=== PATIENT | female | born 1960 | race Caucasian/White ===

== ENCOUNTER → 2016-09-21 | Outpatient (CLI) | payer MEDICARE, MEDICAID ==
[~2016-09-21] MED LIST: AUGMENTIN XR 101 TER PO; BACLOFEN 10MG T10 MG PO; EFFEXOR XR 75MG75 MG PO; EFFEXOR XR150 MG PO; ETODOLAC400 MG PO; FLEXERIL10 MG PO; GABAPENTIN 600600 MG PO; GABAPENTIN100 M1 PO; HYDROCODONE BIT1 T39 PO; HYDROCODONE-APA1 TA2 PO; LISINOPRIL 10MG10 MG PO; LISINOPRIL5 MG PO; NYSTATIN 1100000 UNI MT; PERCOCET 5/3251 EACH PO; ROBAXIN 500 MG500 MG PO; SIMVASTATIN20 MG PO; TIZANIDINE2 MG PO; TRAZADONE HYDR100 MG PO; VALIUM 5MG TABLE5 MG PO; VALIUM5 MG PO; WELLBUTRIN 75MG75 MG PO; XANAX 1MG TABLET1 MG PO
--- NOTE | 2016-09-21 09:25 | RADIOLOGY REPORT PS360 ---
HAND-RT 3 VIEWS HISTORY: Right hand pain BILAT HAND PAIN ORDERING PHYSICIAN: Dick Mcclendon MD PATIENT AGE: 55 years COMPARISON: None FINDINGS: No fracture or dislocation. No lytic or blastic change. There is normal mineralization. No erosive changes evident. There are minimal osteoarthritic changes of the first metacarpal carpal joint and the DIP of digits 2 and 3. IMPRESSION: Minimal osteoarthritic change first metacarpal carpal joint and the DIPs of digits 2 and 3 otherwise negative
--- NOTE | 2016-09-21 09:26 | RADIOLOGY REPORT PS360 ---
HAND-LT-3 VIEWS HISTORY: Left hand pain BILAT HAND PAIN ORDERING PHYSICIAN: Dick Mcclendon MD PATIENT AGE: 55 years COMPARISON: None FINDINGS: No fracture or dislocation. No lytic or blastic change. There is normal mineralization. Mild osteoarthritic changes are present first metacarpal carpal joint and the DIP of digits 2 and 3. No erosive change evident. IMPRESSION: Mild osteoarthritic change first metacarpal carpal joint and the DIP of digits 2 and 3 otherwise negative
== END ==
LOC: RAD 08:11
DX: M79.642 Pain in left hand (principal); M79.641 Pain in right hand

== ENCOUNTER → 2016-11-14 | Outpatient (CLI) | payer MEDICARE, MEDICAID ==
[2016-11-14 14:49] LABS: HEMOGLOBIN 13.6 g/dL (12.2-16.2); LYMPH # 2.9 K/mm3 (0.7-4.5); LYMPH % 29.9 % (10-50.0)
[2016-11-14 15:29] LABS: BUN 19 mg/dL (7-18)
[2016-11-14 15:46] LABS: GFR (ESTIMATED) 74 ML/MIN (59-)
== END ==
LOC: LAB 14:09
PROVIDERS: Nurse Practitioner Family
DX: I10 Essential (primary) hypertension (principal); F32.9 Major depressive disorder, single episode, unspecified; K30 Functional dyspepsia; Z79.899 Other long term (current) drug therapy

== ENCOUNTER 2016-11-21 13:20 | Emergency (ER) | payer MEDICARE, MEDICAID ==
[~2016-11-21] VITALS: Ht 152.4 cm; Wt 61.2 kg
--- NOTE | 2016-11-21 13:37 | Emergency Room Report ---
History of Present Illness Time Seen by [id number] Presenting Problem in Triage Pt arrived:Walked Presenting Problem:PT HAS HX OF CERVICAL DYSTONIA. 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 N Clinical Suspician of Infection? N Mental Status: 1 - Regular (Normal Baseline) Sepsis Risk:Low Sepsis Risk Have you (or family members/close friends) recently traveled outside the [place]? N If Yes, where/when: Have you had exposure to infectious disease within the past month? N TB? Other? Specify: Source patient, RN notes reviewed, family, RN/MD Exam Limitations no limitations Comment This is a pleasant 55-year-old lady, with chronic cervical pain, history of cervical dystonia, presenting with a flareup of her chronic neck pain to the emergency room. Patient is in pain management, under the care of Te Love CRNA. Patient denies any recent trauma, any neurological deficits. ALLERGIES Coded Allergies: butorphanol (From STADOL) (Severe, 09/27/16) Home Medications Active Scripts HYDROCODONE/ACETAMINOPHEN (Hydrocodon-Acetaminoph 7.5-325) 1 TAB PO TID PRN pain #90 TAB Prov: 12/15/15 Cyclobenzaprine Hcl (Flexeril) 10 MG PO TID #90 TAB Ref 2 Prov: 09/13/16 Reported Medications Lisinopril 5 MG PO DAILY #14 Diazepam (Valium 5MG) 5 MG PO BID Venlafaxine Hydrochloride (Effexor XR 75MG) 37.5 MG PO DAILY History Medical History General CAD? No Angina: No CA: No Hypertension? No Hyperlipidemia? Yes CHF? No DVT? No PE? No COPD? No Asthma? No Anemia? No GERD? No Gastric ulcers? No GI Bleed? No Hernia? No Thyroid Problems? No Hypothyroidism? No CVA? No Seizures? No Diabetes? No Renal Insuffiency? No End Stage Renal Disease? No UTI? No Stones? No BPH? No GB Disease: No Nephritic Syndrome? No Asplenia? No Hepatitis? No Sickle Cell Disease? No Arthritis? Yes Migraines? No Cataracts? No Glaucoma? No MRSA? No HIV? No TB? No Anxiety? Yes Depression? Yes Cancer? No More? Yes Additional hx: CERVICAL DYSTONIA--MENINGITIS Immunization Hx DT/Tetanus 1-4 Years Ago Surgical Hx Previous Surgery?Y CARMELLA. 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 LMP N/A Social History Smoking Hx Smoker: Current Every Day Smoker Tobacco: Yes Type Cigarettes Packs/day < 1 Pack Alcohol Alcohol: No Review of Systems All Other Systems Reviewed and Negative Musculoskeletal see HPI, neck pain Physical Exam Vital Signs Vital Signs Date Time Temp Pulse Resp B/P Pulse O2 O2 Flow FiO2 Ox Delivery Rate 11/21 1418 84 16 142/74 98 11/21 1352 16 11/21 1322 98.5 91 16 148/94 98 General Appearance normal appearance, WD/WN, moderate distress Neck normal inspection, supple, full range of motion, tender lateral (right side ) Respiratory Status Yes: trachea midline, chest symmetrical, non tender chest. No: respiratory distress. Lung Sounds bilateral: normal breath sounds, lungs clear. 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 No Comment Upon evaluation patient appears medically stable, clinically improving. 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 Today she appears to have a flareup of her chronic condition, with an overlapping torticollis. She is neurologically intact, has no deficits in the upper extremities. Results/Orders Current Medication Orders Sig/Gera Start time Last Medication Dose Route Stop Time Status Admin Hydromorphone HCl 0 .STK-MED ONE 11/21 1346 DCr .ROUTE Promethazine HCl 0 .STK-MED ONE 11/21 134 DC .ROUTE Hydromorphone HCl 1 MG ONCE ONE 11/21 1345 DCr 11/21 IM 11/21 1346 1352 Methylprednisolone 80 MG ONCE ONE 11/21 1344 CAN Acetate IM 05/15 1346 Promethazine HCl 25 MG ONCE ONE 11/21 1345 DC 11/21 IM 11/21 1346 1351 Sodium Chloride 25 ML ONCE ONE 11/21 1345 DC IV 11/21 1359 Departure Departure Time of Disposition 1410 Disposition DC Home or Self Care(routine) Clinical Impression Primary Impression: Chronic neck pain Secondary Impressions: Acute torticollis Condition STABLE Referrals TE [facility] CRNA: Tomorrow-Call Office If not better Patient Instructions DI for Chronic Neck Pain, DI for Chronic Pain -- Adult, DI for Neck Pain Additional Instructions Please follow-up with Te Love tomorrow, if not better. Discharge Counseling Counseled pt/family regarding diagnosis, medications/RX, home care, follow up needs Comment Please follow-up with Te Love tomorrow, if not better. ED Critical Care Critical Care No at [phone]
--- NOTE | 2016-11-21 13:37 | Emergency Room Report ---
History of Present Illness Time Seen by [id number] Presenting Problem in Triage Pt arrived:Walked Presenting Problem:PT HAS HX OF CERVICAL DYSTONIA. 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 N Clinical Suspician of Infection? N Mental Status: 1 - Regular (Normal Baseline) Sepsis Risk:Low Sepsis Risk Have you (or family members/close friends) recently traveled outside the [place]? N If Yes, where/when: Have you had exposure to infectious disease within the past month? N TB? Other? Specify: Source patient, RN notes reviewed, family, RN/MD Exam Limitations no limitations Comment This is a pleasant 55-year-old lady, with chronic cervical pain, history of cervical dystonia, presenting with a flareup of her chronic neck pain to the emergency room. Patient is in pain management, under the care of Te Love CRNA. Patient denies any recent trauma, any neurological deficits. ALLERGIES Coded Allergies: butorphanol (From STADOL) (Severe, 09/27/16) Home Medications Active Scripts HYDROCODONE/ACETAMINOPHEN (Hydrocodon-Acetaminoph 7.5-325) 1 TAB PO TID PRN pain #90 TAB Prov: 12/15/15 Cyclobenzaprine Hcl (Flexeril) 10 MG PO TID #90 TAB Ref 2 Prov: 09/13/16 Reported Medications Lisinopril 5 MG PO DAILY #14 Diazepam (Valium 5MG) 5 MG PO BID Venlafaxine Hydrochloride (Effexor XR 75MG) 37.5 MG PO DAILY History Medical History General CAD? No Angina: No [place]: No Hypertension? No Hyperlipidemia? Yes CHF? No DVT? No PE? No COPD? No Asthma? No Anemia? No GERD? No Gastric ulcers? No GI Bleed? No Hernia? No Thyroid Problems? No Hypothyroidism? No CVA? No Seizures? No Diabetes? No Renal Insuffiency? No End Stage Renal Disease? No UTI? No Stones? No BPH? No GB Disease: No Nephritic Syndrome? No Asplenia? No Hepatitis? No Sickle Cell Disease? No Arthritis? Yes Migraines? No Cataracts? No Glaucoma? No MRSA? No HIV? No TB? No Anxiety? Yes Depression? Yes Cancer? No More? Yes Additional hx: CERVICAL DYSTONIA--MENINGITIS Immunization Hx DT/Tetanus 1-4 Years Ago Surgical Hx Previous Surgery?Y CARMELLA. 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 Social History Smoking Hx Smoker: Current Every Day Smoker Tobacco: Yes Type Cigarettes Packs/day < 1 Pack Alcohol Alcohol: No Review of Systems All Other Systems Reviewed and Negative Musculoskeletal see HPI, neck pain Physical Exam Vital Signs Vital Signs Date Time Temp Pulse Resp B/P Pulse O2 O2 Flow FiO2 Ox Delivery Rate 11/21 1418 84 16 142/74 98 11/21 1352 16 11/21 1322 98.5 91 16 148/94 98 General Appearance normal appearance, WD/WN, moderate distress Neck normal inspection, supple, full range of motion, tender lateral (right side ) Respiratory Status Yes: trachea midline, chest symmetrical, non tender chest. No: respiratory distress. Lung Sounds bilateral: normal breath sounds, lungs clear. Cardiovascular normal exam, regular rate/rhythm, no peripheral edema, no gallop, no JVD, no murmur, no rub, normal peripheral pulses Gastrointestinal normal bowel sounds, normal exam, non tender, soft, no organomegaly Extremities non-tender, normal range of motion, normal inspection Neurologic alert, churn tender II-XII nml as tested, normal exam, oriented x 3 Mental status normal mood/affect Skin intact, normal color, warm/dry Medical Decision Making LABS/Meds/Orders Pt receiving controlled substance in ED? No Comment Upon evaluation patient appears medically stable, clinically improving. 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 Today she appears to have a flareup of her chronic condition, with an overlapping torticollis. She is neurologically intact, has no deficits in the upper extremities. Results/Orders Current Medication Orders Sig/Gera Start time Last Medication Dose Route Stop Time Status Admin Hydromorphone HCl 0 .STK-MED ONE 11/21 1346 DCr .ROUTE Promethazine HCl 0 .STK-MED ONE 11/21 134 DC .ROUTE Hydromorphone HCl 1 MG ONCE ONE 11/21 1345 DCr 11/21 IM 11/21 1346 1352 Methylprednisolone 80 MG ONCE ONE 11/21 1344 CAN Acetate IM 05/15 1346 Promethazine HCl 25 MG ONCE ONE 11/21 1345 DC 11/21 IM 11/21 1346 1351 Sodium Chloride 25 ML ONCE ONE 11/21 1345 DC IV 11/21 1359 Departure Departure Time of Disposition 1410 Disposition DC Home or Self Care(routine) Clinical Impression Primary Impression: Chronic neck pain Secondary Impressions: Acute torticollis Condition STABLE Referrals [facility] CRNA: Tomorrow-Call Office If not better Patient Instructions DI for Chronic Neck Pain, DI for Chronic Pain -- Adult, DI for Neck Pain Additional Instructions Please follow-up with Te Love tomorrow, if not better. Discharge Counseling Counseled pt/family regarding diagnosis, medications/RX, home care, follow up needs Comment Please follow-up with Te Love tomorrow, if not better. ED Critical Care Critical Care No at [phone]
--- OUTSIDE RECORDS SUMMARY | 2016-11-21 13:54 | External Medical Summary Rpt ---
Author Author , Organization [employer] Address Unknown Phone Unavailable Care Team Providers Care Acetone Button Paster Name Role Phone Quoc HOYT, Unavailable Unavailable Quoc HOYT MD, PSC, Unavailable Unavailable CANDICE BAR MD, PSC [facility] Unavailable Unavailable [facility], [facility], Unavailable Unavailable [facility] AFTAB SWIFT, Unavailable Unavailable AFTAB SWIFT [id number], Unavailable Unavailable [id number] GABRIEL VARGAS, Unavailable Unavailable GABRIEL VARGAS DUFF Unavailable Unavailable [facility] Un[facility] Un[facility], [facility] CAITLIN REINA, Unavailable Unavailable CAITLIN REINA [facility] Unavailable Unavailable PHARMACY, [facility] MARCIAL HUDDLESTON, Unavailable Unavailable MARCIAL HUDDLESTON NATHAN L, Unavailable Unavailable JALEN PLASCENCIA KEVIN, Unavailable Unavailable [facility] Unavailable Unavailable LAB, [facility] ROSS, SAGE, ROSS, Unavailable Unavailable SAGE [id number], Unavailable Unavailable [id number] MERLYN ROGERS, Unavailable Unavailable MERLYN ROGERS DON R, Unavailable Unavailable PRANAV GONZALEZ [facility], Unavailable Unavailable [facility] LUDA RAMOS, Unavailable Unavailable LUDA RAMOS JEFFREY, Unavailable Unavailable FADY LOMELI BRADLEY B, Unavailable Unavailable CARLOS LEI Purpose Continuity of Care Document - 08-16-2007 through 2016 Problems Code Diagnosis DOS Provider Status E785 HYPERLIPIDE 09-22-2016 [facility] UNSPECIFIED INC I10 ESSENTIAL 09-22-2016 [facility] HYPERTENSIO INC N [id number] PAIN IN 09-21-2016 [facility] INC [id number] PAIN IN 09-21-2016 [facility] INC G4733 OBSTRUCTIVE 09-08-2016 [facility] APNEA ADULT INC PEDIATRIC R0602 SHORTNESS 07-29-2016 [facility] INC R42 DIZZINESS 07-29-2016 [facility] GIDDINESS INC Z720 TOBACCO USE 07-29-2016 [facility] INC Z8249 FAMILY HX 07-21-2016 [facility] HRT DZ OTH INC DZ CIRC SYSTEM [id number] CHRONIC 07-19-2016 [facility] HEADACHE [facility] NOT INTRACTABLE [id number] STRAIN 07-19-2016 [facility]ASC [facility] T[facility] PSC NECK LEVL INIT ENC M5010 CERVICAL 04-05-2016 CANDICE BAR DISC D/O MD, PSC W/RADICULOP ATHY UNS CERV RGN M791 MYALGIA 04-05-2016 CANDICE BAR MD, PSC M542 CERVICALGIA 01-15-2016 [facility] INC R140 ABDOMINAL 11-26-2015 [facility] GASEOUS INC G249 DYSTONIA 08-07-2015 [facility] M069 RHEUMATOID 08-07-2015 [facility] UNSPECIFIED R51 HEADACHE 08-07-2015 [facility] Z721 08-07-2015 [facility] INC K69149 PAIN IN 07-16-2015 [facility] INC 7231 CERVICALGIA 01-30-2015 [facility] INC V7231 ROUTINE 11-24-2008 [facility] 91285 PAIN IN 11-13-2008 [facility] ANKLE AND HOSPITAL FOOT 7235 TORTICOLLIS 11-13-2008 [facility] UNSPECIFIED HOSPITAL V571 OTHER 11-13-2008 [place] PHYSICAL [facility] THERAPY HOSPITAL 7245 UNSPECIFIED 10-31-2008 [facility] [place] BACKACHE RADIOLOGY 7295 PAIN IN 10-31-2008 [facility] [place] SOFT RADIOLOGY TISSUES OF LIMB 71220 UNSPECIFIED 10-31-2008 [facility] 71419 UNSPECIFIED 10-31-2008 [facility] [place] SITE OF RADIOLOGY ANKLE SPRAIN AND STRAIN V4382 BREAST 10-31-2008 [place] REPLACED BY [facility] OTHER HOSPITAL MEANS V7612 OTHER 10-31-2008 [facility] [place] SCREENING RADIOLOGY MAMMOGRAM V8281 SPECIAL 10-31-2008 [facility] [place] SCREENING RADIOLOGY FOR OSTEOPOROSI S 92248 SPASMODIC 10-02-2008 [place] [facility] TORTICOLLIS SERV [facility] 1129 CANDIDIASIS 08-11-2008 GONZALEZ, OF DON R UNSPECIFIED SITE 4610 ACUTE 08-11-2008 GONZALEZ, MAXILLARY DON R SINUSITIS 4619 ACUTE 08-08-2008 AYLA SINUSITIS, [facility] UNSPECIFIED [place] 7840 HEADACHE 08-08-2008 [facility] 7862 COUGH 08-08-2008 [facility] 4660 ACUTE 07-30-2008 CARLOS, BRONCHITIS DON R 0340 STREPTOCOCC 07-23-2008 CARLOS AL SORE DON R THROAT 4659 ACUTE URIS 07-14-2008 CARLOS OF DON R UNSPECIFIED SITE 5959 UNSPECIFIED 04-11-2008 CARLOS, [place]STIT[place] [address] UNSPECIFIED 04-11-2008 CARLOS, VAGINITIS DON R AND VULVOVAGINI TIS 7292 UNSPECIFIED 03-08-2008 CARLOS NEURALGIA DON R NEURITIS AND RADICULITIS 7234 BRACHIAL 03-04-2008 [facility] NEURITIS OR [facility] RADICULITIS NOS 7291 UNSPECIFIED 03-04-2008 [facility] MYALGIA [facility] AND MYOSITIS 7391 NONALLOPATH 03-04-2008 [facility] IC LESION [facility] OF CERVICAL REGION NEC 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 [facility] [place] 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 3384 CHRONIC 11-07-2007 [facility] PA[facility] SYNDROME MEDICIINE PSC 7210 CERVICAL 11-07-2007 [facility] SPONDYLOSIS PAIN WITHOUT MEDICIINE MYELOPATHY PSC 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-2007 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 51996 STIFFNESS 10-29-2007 [facility] OF JOINT [facility] NEC OTHER SPECIFIED SITE 7239 UNSPEC 10-29-2007 [facility] MUSCULOSKEL [facility]N D/O&SYMPTOM S REFERABLE NECK 68522 UNSPECIFIED 08-16-2007 [facility] ACUTE MEDICAL NONSUPPURAT CLINIC CHRISTAL OTITIS MEDIA 4871 INFLUENZA 08-16-2007 [facility] WITH OTHER MEDICAL RESPIRATORY CLINIC MANIFESTATI ONS G24.3 SPASMODIC TORTICOLLIS Medications Na ND Rx Da Fi Fi Am Da Di Ph RX Ph St me C No te ll ll ou ys ag ar # ys at rm s nt no ma ic us Or Da si cy ia de te s n re d 00 11 06 05 42 28 RI 34 YO Ac 04 -1 -0 .5 TE 46 UK ti 60 7- 4- 00 21 IL ve 87 20 20 AI IS 29 08 09 D 3 PH BR AR AD M LE #3 Y 91 B 4 NC 00 05 06 00 30 30 RI 36 YO Ac EM 04 -1 -0 .0 TE 42 UK ti AR 61 8- 4- 00 23 IL ve IN 10 20 20 AI IS 08 09 09 D 0. 1 PH BR 3 AR AD MG M LE #3 Y TA 91 B BL 4 ET CL 00 05 05 00 20 5 RI 36 RA Ac ON 09 -0 -2 .0 TE 23 AB ti AZ 30 6- 1- 00 38 ve EP 83 20 20 AI RE AM 20 09 09 D GI 1 PH NA 0. AR 5 M MG #3 91 TA 4 BL ET 64 10 05 03 5. 1 RI 34 YO Ac 01 -1 -2 79 TE 12 UK ti 10 5- 1- 9 38 IL ve 00 20 20 AI IS 10 08 09 D 8 PH BR AR AD M LE #3 Y 91 B 4 00 05 05 00 9. 30 RI 36 WE Ac 09 -1 -[address] ti 30 3- 1- 0 87 ve 22 20 20 AI RI 49 09 09 D CH 0 PH AR AR D M M #3 91 4 NC 00 11 05 05 30 30 RI 34 YO Ac EM 04 -1 -0 .0 TE 46 UK ti AR 61 7- 7- 00 24 IL ve IN 10 20 20 AI IS 08 08 09 D 0. 1 PH BR 3 AR AD MG M LE #3 Y TA 91 B BL 4 ET 00 11 05 04 42 28 RI 34 YO Ac 04 -1 -0 .5 TE 46 UK ti 60 7- 7- 00 21 IL ve 87 20 20 AI IS 29 08 09 D 3 PH BR AR AD M LE #3 Y 91 B 4 00 11 04 03 42 28 RI 34 YO Ac 04 -1 -0 .5 TE 46 UK ti 60 7- 9- 00 21 IL ve 87 20 20 AI IS 29 08 09 D 3 PH BR AR AD M LE #3 Y 91 B 4 NC 00 11 04 04 30 30 RI 34 YO Ac EM 04 -1 -0 .0 TE 46 UK ti AR 61 7- 9- 00 24 IL ve IN 10 20 20 AI IS 08 08 09 D 0. 1 PH BR 3 AR AD MG M LE #3 Y TA 91 B BL 4 ET KAMI 00 03 04 00 3. 1 KE 12 NE Ac TO 02 -2 -0 00 NT 42 LS ti X 31 6- 9- 0 UC 75 ON ve 10 14 20 20 KY 0 0 50 09 09 KE UN 1 CL IT IN N S IC AL PH AR MA CY BA 00 03 03 00 90 30 RI 35 RA Ac CL 17 -1 -2 .0 TE 65 AB ti OF 24 3- 6- 00 47 ve EN 09 20 20 AI RE 66 09 09 D GI 10 0 PH NA AR MG M #3 TA 91 BL 4 ET 00 11 03 02 42 28 RI 34 YO Ac 04 -1 -1 .5 TE 46 UK ti 60 7- 2- 00 21 IL ve 87 20 20 AI IS 29 08 09 D 3 PH BR AR AD M LE #3 Y 91 B 4 NC 00 11 03 03 30 30 RI 34 YO Ac EM 04 -1 -1 .0 TE 46 UK ti AR 61 7- 2- 00 24 IL ve IN 10 20 20 AI IS 08 08 09 D 0. 1 PH BR 3 AR AD MG M LE #3 Y TA 91 B BL 4 ET 00 02 02 00 [address] Ac 60 -1 -2 .0 TE 32 EP ti 35 1- 6- 00 02 HE ve 46 20 20 AI NS 82 09 09 D 8 PH DO AR N M R #3 91 4 NC 00 02 02 00 [address] Ac OM 78 -0 -1 .0 TE 21 EP ti ET 11 2- 2- 00 17 HE ve YANG 83 20 20 AI NS ZI 00 09 09 D NE 1 PH DO AR N 25 M R #3 MG 91 4 TA BL ET NY 51 01 02 00 10 10 RI [address] 67 -3 -1 0. TE 19 MO ti AT 24 0- 2- 00 58 N ve IN 11 20 20 0 AI AN [address] 10 9 PH EW 0, AR R 00 M 0 #3 UN 91 IT 4 /M L CAMACHO SP 00 01 02 00 20 5 RI 35 YANG Ac 02 -3 -1 .0 TE 19 MO ti 96 0- 2- 00 57 N ve 09 20 20 AI AN [address] 0 PH EW AR R M #3 91 4 AZ 59 01 01 00 6. [address] Ac IT 76 -1 -3 00 TE 04 EP ti HR 23 4- 0- 0 04 HE ve OM 06 20 20 AI NS YC 00 09 09 D IN 1 PH DO AR N 25 M R 0 #3 MG 91 4 TA BL ET FL 00 01 01 00 8. [address] Ac UC 17 -1 -3 00 TE 04 EP ti ON 25 4- 0- 0 03 HE ve AZ 41 20 20 AI NS OL 14 09 09 D E 6 PH DO 10 AR N 0 M R MG #3 91 TA 4 BL ET FL 00 01 01 00 [address] Ac UT 05 -2 -3 .0 TE 11 EP ti IC 43 1- 0- 00 46 HE ve 27 20 20 AI NS ON 09 09 09 D E 9 PH DO NC AR N OP M R #3 50 91 4 MC G SP RA Y ME 00 01 01 00 [address] Ac TH 60 -2 -3 .0 TE 11 EP ti YL 34 1- 0- 00 47 HE ve NC 59 20 20 AI NS ED 31 09 09 D NI 5 PH DO SO AR N LO M R NE #3 4 91 4 MG DO SE PK NC 00 11 01 02 30 30 RI 34 YO Ac EM 04 -1 -3 .0 TE 46 UK ti AR 61 7- 0- 00 24 IL ve IN 10 20 20 AI IS 08 08 09 D 0. 1 PH BR 3 AR AD MG M LE #3 Y TA 91 B BL 4 ET 60 01 01 00 [address] Ac 25 -2 -3 0. TE 11 EP ti 80 1- 0- 00 45 HE ve 23 20 20 0 AI NS 91 09 09 D 6 PH DO AR N M R #3 91 4 FL 00 01 01 00 2. [address] Ac UC 17 -0 -1 00 TE 99 EP ti ON 25 9- 5- 0 81 HE ve AZ 41 20 20 AI NS OL 21 09 09 D E 1 PH DO 15 AR N 0 M R MG #3 91 TA 4 BL ET 00 01 01 00 [address] Ac 60 -0 -1 .0 TE 91 EP ti 35 2- 5- 00 86 HE ve 46 20 20 AI NS 82 09 09 D 8 PH DO AR N M R #3 91 4 AV 00 01 01 00 7. [address] Ac EL 08 -0 -1 00 TE 93 EP ti OX 51 5- 5- 0 56 HE ve 73 20 20 AI NS 40 30 09 09 D 0 1 PH DO MG AR N M R TA #3 BL 91 ET 4 KAMI 00 12 01 00 3. 1 KE 12 NE Ac TO 02 -1 -1 00 NT 19 LS ti X 31 2- 5- 0 UC 31 ON ve 10 14 20 20 KY 5 0 50 08 09 KE UN 1 CL IT IN N S IC AL PH AR MA CY 64 10 01 02 5. 1 RI 34 YO Ac 01 -1 -0 79 TE 12 UK ti 10 5- 1- 9 38 IL ve 00 20 20 AI IS 10 08 09 D 8 PH BR AR AD M LE #3 Y 91 B 4 NC 00 11 01 01 30 30 RI 34 YO Ac EM 04 -1 -0 .0 TE 46 UK ti AR 61 7- 1- 00 24 IL ve IN 10 20 20 AI IS 08 08 09 D 0. 1 PH BR 3 AR AD MG M LE #3 Y TA 91 B BL 4 ET 00 11 01 01 42 28 RI 34 YO Ac 04 -1 -0 .5 TE 46 UK ti 60 7- 1- 00 21 IL ve 87 20 20 AI IS 29 08 09 D 3 PH BR AR AD M LE #3 Y 91 B 4 NC 00 11 12 00 30 30 RI 34 YO Ac EM 04 -1 -0 .0 TE 46 UK ti AR 61 7- 4- 00 24 IL ve IN 10 20 20 AI IS 08 08 08 D 0. 1 PH BR 3 AR AD MG M LE #3 Y TA 91 B BL 4 ET 00 11 12 00 42 28 RI 34 YO Ac 04 -1 -0 .5 TE 46 UK ti 60 7- 4- 00 21 IL ve 87 20 20 AI IS 29 08 08 D 3 PH BR AR AD M LE #3 Y 91 B 4 CL 00 05 12 02 20 10 RI 33 NE Ac ON 09 -2 -0 .0 TE 82 LS ti AZ 30 3- 4- 00 06 ON ve EP 83 20 20 AI AM 20 08 08 D KE 1 PH 0. AR N 5 M MG #3 91 TA 4 BL ET NC 00 10 11 01 30 30 RI 34 YO Ac EM 04 -1 -2 .0 TE 12 UK ti AR 61 5- 0- 00 37 IL ve IN 10 20 20 AI IS 18 08 08 D 0. 1 PH BR 45 AR AD M LE MG #3 Y 91 B TA 4 BL ET 64 10 11 01 5. 1 RI 34 YO Ac 01 -1 -0 79 TE 12 UK ti 10 5- 7- 9 38 IL ve 00 20 20 AI IS 10 08 08 D 8 PH BR AR AD M LE #3 Y 91 B 4 ME 50 10 10 00 14 7 RI 34 YO Ac TR 11 -1 -2 .0 TE 12 UK ti ON 10 5- 3- 00 40 IL ve ID 33 20 20 AI IS AZ 40 08 08 D OL 1 PH BR E AR AD 50 M LE 0 #3 Y MG 91 B 4 TA BL ET NC 00 10 10 00 30 30 RI 34 YO Ac EM 04 -1 -2 .0 TE 12 UK ti AR 61 5- 3- 00 37 IL ve IN 10 20 20 AI IS 18 08 08 D 0. 1 PH BR 45 AR AD M LE MG #3 Y 91 B TA 4 BL ET 64 10 10 00 5. 1 RI 34 YO Ac 01 -1 -2 79 TE 12 UK ti 10 5- 3- 9 38 IL ve 00 20 20 AI IS 10 08 08 D 8 PH BR AR AD M LE #3 Y 91 B 4 KAMI 00 09 10 00 3. 1 KE 11 NE Ac TO 02 -2 -2 00 NT 99 LS ti X 31 5- 3- 0 UC 53 ON ve 10 14 20 20 KY 4 0 50 08 08 KE UN 1 CL IT IN N S IC AL PH AR MA CY CL 00 05 10 01 20 10 RI 33 NE Ac ON 09 -2 -0 .0 TE 82 LS ti AZ 30 3- 9- 00 06 ON ve EP 83 20 20 AI AM 20 08 08 D KE 1 PH 0. AR N 5 M MG #3 91 TA 4 BL ET 00 01 10 01 3. [address] Ac 00 -1 -0 00 TE 41 EP ti 63 1- 9- 0 39 HE ve 80 20 20 AI NS 11 08 08 D 2 PH DO AR N M R #3 91 4 CI 00 10 10 00 [address] Ac NC 17 -0 -0 .0 TE 01 EP ti OF 25 3- 9- 00 15 HE ve LO 31 20 20 AI NS XA 26 08 08 D CI 0 PH DO N AR N HC M R L #3 50 91 0 4 MG TA B 00 10 10 00 [address] Ac 04 -0 -0 .5 TE 01 EP ti 60 3- 9- 00 14 HE ve 87 20 20 AI NS 29 08 08 D 3 PH DO AR N M R #3 91 4 00 01 09 00 3. [address] Ac 00 -1 -2 00 TE 41 EP ti 63 1- 6- 0 39 HE ve 80 20 20 AI NS 11 08 08 D 2 PH DO AR N M R #3 91 4 CL 00 05 09 00 20 10 RI 33 NE Ac ON 09 -2 -2 .0 TE 82 LS ti AZ 30 3- 6- 00 06 ON ve EP 83 20 20 AI AM 20 08 08 D KE 1 PH 0. AR N 5 M MG #3 91 TA 4 BL ET NA 00 08 09 00 [address] Ac SO 08 -3 -1 .0 TE 68 EP ti NE 51 0- 1- 00 13 HE ve X 28 20 20 AI NS 50 80 08 08 D 1 PH DO MC AR N G M R NA #3 SA 91 L 4 SP RA Y LO 00 08 09 00 [address] Ac RA 78 -3 -1 .0 TE 68 EP ti TA 15 0- 1- 00 12 HE ve DI 07 20 20 AI NS NE 70 08 08 D 1 PH DO 10 AR N M R MG #3 91 TA 4 BL ET 00 08 08 00 60 30 RI 33 RA Ac 59 -1 -2 .0 TE 56 AB ti 10 8- 8- 00 37 ve 33 20 20 AI RE 90 08 08 D GI 1 PH NA AR M #3 91 4 CY 00 08 08 00 90 30 RI 33 RA Ac CL 37 -1 -2 .0 TE 56 AB ti OB 80 8- 8- 00 36 ve EN 75 20 20 AI RE ZA 11 08 08 D GI NC 0 PH NA IN AR E M 10 #3 91 MG 4 TA BL ET LO 00 07 08 00 [address] Ac RA 78 -3 -1 .0 TE 39 EP ti TA 15 0- 4- 00 18 HE ve DI 07 20 20 AI NS NE 70 08 08 D 1 PH DO 10 AR N M R MG #3 91 TA 4 BL ET KAMI 00 05 07 00 3. 1 KE 11 No Ac TO 02 -2 -0 00 NT 63 t ti X 31 3- 3- 0 UC 98 Av ve 10 14 20 20 KY 6 ai 0 50 08 08 la UN 1 CL bl IT IN e S IC AL PH AR MA CY LI 00 12 06 00 15 20 RI 32 DU Ac DO 16 -2 -0 0. TE 79 BA ti CA 80 7- 5- 00 13 L ve IN 35 20 20 0 AI SA E- 73 07 08 D RO NC 0 PH J IL AR B OC M AI #3 NE 91 4 CR EA M ME 00 04 06 01 28 7 RI 32 No Ac TH 60 -2 -0 .0 TE 72 t ti OC 34 8- 5- 00 66 Av ve AR 48 20 20 AI ai BA 52 08 08 D la MO 1 PH bl L AR e 50 M 0 #3 MG 91 4 TA BL ET 00 05 06 00 28 7 RI 32 No Ac 40 -1 -0 .0 TE 75 t ti 60 9- 5- 00 18 Av ve 35 20 20 AI ai 70 08 08 D la 5 PH bl AR e M #3 91 4 CY 00 03 06 01 90 30 RI 32 RA Ac CL 37 -1 -0 .0 TE 12 AB ti OB 80 7- 5- 00 17 ve EN 75 20 20 AI RE ZA 10 08 08 D GI NC 1 PH NA IN AR E M 10 #3 91 MG 4 TA BL ET ME 00 04 05 00 12 3 RI 32 No Ac TH 60 -2 -2 .0 TE 72 t ti OC 34 8- 2- 00 66 Av ve AR 48 20 20 AI ai BA 52 08 08 D la MO 1 PH bl L AR e 50 M 0 #3 MG 91 4 TA BL ET ME 00 04 05 00 40 10 RI 32 No Ac TH 60 -2 -0 .0 TE 59 t ti OC 34 8- 8- 00 87 Av ve AR 48 20 20 AI ai BA 52 08 08 D la MO 1 PH bl L AR e 50 M 0 #3 MG 91 4 TA BL ET CH 00 04 05 00 47 10 RI 32 No Ac LO 11 -2 -0 3. TE 56 t ti RH 62 9- 8- 00 86 Av ve EX 00 20 20 0 AI ai ID 11 08 08 D la IN 6 PH bl E AR e 0. M 12 #3 % 91 RI 4 NS E NC 00 04 04 00 30 30 RI 32 No Ac EM 04 -1 -2 .0 TE 39 t ti AR 61 4- 4- 00 88 Av ve IN 10 20 20 AI ai 18 08 08 D la 0. 1 PH bl 45 AR e M MG #3 91 TA 4 BL ET TE 00 03 04 00 7. 7 RI 32 No Ac MA 37 -1 -1 00 TE 12 t ti ZE 84 7- 7- 0 18 Av ve PA 01 20 20 AI ai M 00 08 08 D la 15 1 PH bl AR e MG M #3 CA 91 PS 4 UL E CY 00 03 04 00 90 30 RI 32 No Ac CL 37 -1 -1 .0 TE 12 t ti OB 80 7- 7- 00 17 Av ve EN 75 20 20 AI ai ZA 10 08 08 D la NC 1 PH bl IN AR e E M 10 #3 91 MG 4 TA BL ET NC 00 11 04 00 30 30 RI 32 No Ac EM 04 -1 -0 .0 TE 01 t ti AR 61 9- 7- 00 90 Av ve IN 10 20 20 AI ai 28 07 08 D la 0. 1 PH bl 62 AR e 5 M MG #3 91 TA 4 BL ET 00 03 04 00 90 30 CV 46 No Ac 14 -0 -0 .0 S 41 t ti 90 5- 7- 00 PH 11 Av ve 03 20 20 AR ai 00 08 08 MA la 5 CY bl e #3 01 6 TI 57 02 03 00 60 30 CV 46 No Ac ZA 66 -2 -2 .0 S 21 t ti NI 40 0- 6- 00 PH 73 Av ve DI 50 20 20 AR ai NE 28 08 08 MA la 9 CY bl HC e L #3 2 01 MG 6 TA BL ET Procedures Procedure DOS Code Location Performer Comment ECG 79460 [facility] ECG INC INC W/LEAST 12 LDS TRCG ONLY W/O I&R RADEX 78229 [facility] HAND [facility] MINIMUM 3 INC INC VIEWS POLYSOM 02286 [facility] 6/>YRS 7 [facility] SLEEP 4/> INC INC ADDL VARGHESE ATTND MYOCARDIA 82977 [facility] L SPECT 7 [facility] MULTIPLE INC INC STUDIES ECHO 25577 [facility] TTHRC R-T 7 [facility] 2D INC INC W/WOM-MOD E COMPL SPEC&COLR D CV STRS 62782 [facility] TST [facility] XERS&/OR INC INC RX CONT ECG TRCG ONLY INJECTION J2785 [facility] REGADENOS INC INC ON 0.1 MG TECHNETIU A9502 [facility] TC-99M 7 [facility] TETROFOSM INC INC IN DX PER STUDY DOSE ECG 77040 [facility] ECG INC INC W/LEAST 12 LDS TRCG ONLY W/O I&R THERAPEUT 61201 PROFESS[facility] CROSSFIEL IC PX 1/> 7 [facility] EACH 15 PSC MIN EXERCISES THERAPEUT 83394 PROFESS[facility] CROSSFIEL IC PX 1/> 6 [facility] EACH 15 PSC MIN EXERCISES THERAPEUT 61763 PROFESSIO PROFESSIO IC PX 1/> 6 [facility]OC EACH 15 PSC PSC MIN EXERCISES THERAPEUT 51840 PROFESSIO CROSSFIEL IC PX 1/> 6 [facility] EACH 15 PSC MIN EXERCISES THERAPEUT 45313 PROFESSIO PROFESSIO IC PX 1/> 6 [facility] ASSOC EACH 15 PSC PSC MIN EXERCISES THERAPEUT 70013 PROFESSIO CROSSFIEL IC PX 1/> 6 [facility] EACH 15 PSC MIN EXERCISES THERAPEUT 18161 PROFESSIO CROSSFIEL IC PX 1/> 6 [facility] EACH 15 PSC MIN EXERCISES THERAPEUT 30663 PROFESSIO PROFESSIO IC PX 1/> 6 [facility] ASSOC EACH 15 PSC PSC MIN EXERCISES THERAPEUT 14677 PROFESSIO CROSSFIEL IC PX 1/> 6 [facility] EACH 15 PSC MIN EXERCISES MANUAL 67233 PROF[facility] CROSSFIEL THERAPY 6 [facility] D TQS 1/> ASSOC REGIONS PSC EACH 15 MINUTES PHYSICAL 87266 PROF[facility] CROSSFIEL THERAPY 6 [facility] D EVALUATIO ASSOC N PSC THERAPEUT 52242 [facility] IC 6 [facility] PROPHYLAC INC INC TIC/DX INJECTION SUBQ/[place] [address] [facility] INFUSION 6 [facility] THERAPY/P INC INC ROPHYLAXI S /DX 1ST TO 1 [place] [address] [facility] INFUSION 6 [facility] THERAPY INC INC PROPHYLAX IS/[place] [address] [facility] HEAD/BRAI 6 [facility] N W/O INC INC CONTRAST MATERIAL CULTURE 66883 [facility] BACTERIAL 6 [facility] INC INC QU[place]TTAT[place] [address] [facility] THYROID 6 [facility] STIMULATI INC INC NG HORMONE TSH COMPREHEN 76201 [facility] SIVE 6 [facility] METABOLIC INC INC PANEL ECG 86742 [facility] ROUTINE 6 [facility] ECG INC INC W/LEAST 12 LDS TRCG ONLY W/O I&R BLOOD 77241 [facility] COUNT 6 [facility] COMPLETE INC INC AUTO&AUTO DIFRNTL WBC URNLS DIP 96581 [facility] 6 [facility] STICK/TAB INC INC LET REAGENT AUTO MICROSCOP Y DRAINAGE [id number] [facility] SPINAL 6 Y Y CANAL [facility] PERCUTANE OUS APPROACH DX DUP-SCAN 37654 [facility] XTR VEINS 6 [facility] INC INC UNILATERA L/LIMITED STUDY 3D 40632 [facility] RENDERING 5 [facility] W/INTERP INC INC & POSTPROCE SS SUPERVISI ON MRI 48424 [facility] SPINAL 5 [facility] CANAL INC INC CERVICAL W/O CONTRAST MATRL APPL 08933 [place] MODALITY 9 [facility] 1/[facility] TRACTION MECHANICA L THERAPEUT 62704 [place] P[place] 1/> [address] [place] [address] EACH 15 MIN EXERCISES COMPUTER- 58716 CNTRSHARI CHENG 9 RADIOLOGY J DETECTION SCREENING MAMMOGRAP HY DXA BONE 43208 [place] [facility] DENSITY 9 [facility] VERTEBRAL FRACTURE RADEX 52162 CNTRErvin REINA ANKLE 9 RADIOLOGY [facility] COMPLETE MINIMUM 3 VIEWS RADEX 53471 [facility] REINA FOOT 9 RADIOLOGY [facility] COMPLETE MINIMUM 3 VIEWS SCREENING 49928 [facility] [place] EVEL[place], 9 RADIOLOGY J MAMMOGRAP HY BILATERAL DXA BONE 67287 [facility] DENSITY 9 [facility] 1/> [facility] SITES AXIAL SKEL E-STIM G0283 [facility]/> [facility] [address] [facility] WND CARE PART TX PLAN PHYSICAL 71064 [facility] THERAPY [address] [facility] N APPL 35096 [facility] MODALITY 9 [facility] 1/> [facility] ULTRASOUN D EA 15 MIN CHEMODENE 86545 BERNARD FERRARA, RVATION 9 MEDICAL MITCHEL NECK SERV MUSCLE FOUNDATIO NEEDLE 95006 BERNARD FERRARA, EMG GUID 9 MEDICAL [facility]CHEL W/CHEMODE SERV NERVATION FOUNDATIO RADEX 28962 [facility] SINUSES 9 [facility] PARANASAL INC INC COMPL MINIMUM 3 VIEWS RADIOLOGI 10983 [facility] C EXAM 9 [facility] CHEST 2 INC INC VIEWS FRONTAL&L ATERAL CUL BACT 14267 [facility] XCPT 9 [facility] URINE INC INC BLOOD/STO OL AEROBIC ISOL IAADIADOO 67514 CARLOS GONZALEZ, 9 DON R DON R STREPTOCO CCUS GROUP A NEEDLE 32407 BERNARD FERRARA, EMG GUID 8 MEDICAL MITCHEL W/CHEMODE SERV NERVATION FOUNDATIO CHEMODENE 37752 BERNARD FERRARA RVATION 8 MEDICAL MITCHEL NECK SERV MUSCLE FOUNDATIO CHEMODENE 78059 [facility] RVATION 8 [facility] MUSCLE NEEDLE 88807 BERNARD FERRARA, EMG GUID 8 MEDICAL MITCHEL W/CHEMODE SERV NERVATION FOUNDATIO CHIROPRAC 33737 KEN ROGERS TIC 8 [facility] EXPRESS MANIPULAT [place] SPINAL 1-2 REGIONS MRI 64301 CNTRL BERNARD HOYT, SPINAL 8 RADIOLOGY J CANAL CERVICAL W/O CONTRAST MATRL NEEDLE 38894 BERNARD FERRARA, EMG GUID 8 MEDICAL MITCHEL W/CHEMODE SERV NERVATION FOUNDATIO CHEMODENE 25279 BERNARD FERRARA, RVATION 8 MEDICAL MITCHEL [place]X [address]66 ADVANCED DUBAL, DX/THER 8 PAIN GABRIEL B SBST MEDICIINE EPIDURAL/ PSC SUBRACH CERV/THOR ACIC FLUOR 72448 ADVANCED DUBAL, NEEDLE/CA 8 PAIN GABRIEL B TH MEDICIINE SPINE/PAR PSC ASPINAL DX/THER ADDON APPL 66649 KEN ROGERS, MODALITY 8 MERLYN ZULETA 1/> AREAS ELEC STIMJ EA 15 MIN CHIROPRAC 84671 KEN ROGERS, TIC 8 MERLYN ZULETA MANIPULAT [place]RI[place]AL [place] SPINAL 1-2 REGIONS CHIROPRAC 43816 KEN ROGERS TIC 8 MERLYN ZULE[place] MANIPULAT [place] SPINAL 1-2 [place] [address] KEN ROGERS, 1/> AREAS 8 MERLYN ZULETA EACH 15 MINUTES MASSAGE CHIROPRAC 28345 KEN ROGERS TIC 8 MERLYN ZULETA MANIPULAT [place]AL [place] SPINAL 1-2 [place] [address] KEN ROGERS, 1/> AREAS 8 MERLYN ZULETA EACH 15 MINUTES MASSAGE CYTP C/V 07147 PATHOLOGY PATHOLOGY AUTO THIN 8 & & LYR CYTOLOGY CYTOLOGY PREPJ SCR LAB LAB MNL RESCR PHYS CHIROPRAC 95654 KEN ROGERS TIC 8 MERLYN UZLETA MANIPULAT [place]RISTAL [place] SPINAL 1-[place] [address] KEN ROGERS, 1/> AREAS 8 MERLYN ZULETA [place]ACH [place] [address] KEN ROGERS, 1/> AREAS 8 MERLYN ZULETA EACH 15 MINUTES MASSAGE CHIROPRAC 68132 KEN ROGERS TIC 8 MERLYN ZULETA MANIPULAT [place]RISTAL [place] SPINAL 1-2 REGIONS RADEX 88860 KEN ROGERS, SPINE 8 MERLYN ZULETA CERVICAL 2 OR 3 VIEWS Encounters Encounter Start End Date Code Location Performer Type Date [facility] SARA - Roger 7 [facility] S[facility] - 7 7 [facility] - 7 7 [facility] - 7 7 [facility] SARA - 7 7 [facility] OFFICE [address] [facility] 6 6 MD YOSVANY, T VISIT PSC 15 MINUTES [facility]OSPITAL S[facility] - 6 6 [facility] EMERGENCY 90562 SARA 6 6 [facility] T VISIT MODERATE SEVERITY HOSPITAL SARA - 6 6 [facility] 03395 SARA 6 6 [facility] T VISIT MODERATE [facility]VERITY HOSPITAL UNIVERSIT - 6 6 Y INPATIENT HOSPITAL [facility] SARA - 6 6 [facility] SARA - 5 5 [facility] PERIODIC 42677 FADI NIETO 9 9 [place] [facility] 9 9 [facility] [address] [facility] 9 9 LUDA El T [facility] 30 MINUTES HOSPITAL UNIVERSIT - 9 9 [facility] T OFFICE 61892 CARLOS GONZALEZ [facility] 9 9 DON R DON R T VISIT 15 MINUTES EMERGENCY 36092 S[facility] 9 9 [facility] T V[facility]IT [facility] - 9 9 [facility] T EMERGENCY 86967 AYLA LOMELI, 9 9 [facility] T VISIT ON HIGH/URGE NT SEVERITY OFFICE 98840 CARLOS GONZALEZ OUTPATIKATY 9 9 DON R DON R T VISIT 15 MINUTES OFFICE 03973 CARLOS GONZALEZ OUTPATIEN 9 9 DON R DON R T VISIT 15 MINUTES OFFICE 84762 CARLOS GONZALEZ OUTPATIKATY 9 9 DON R DON R T VISIT 15 MINUTES OFFICE 00452 CARLOS GONZALEZ OUTPATIKATY 8 8 DON R DON R T VISIT 25 MINUTES HOSPITAL UNIVERSIT - 8 8 Y [facility] T OFFICE 47235 CARLOS GONZALEZ OUTPATIKATY 8 8 DON R DON R T VISIT 15 MINUTES HOSP[facility] [place] - 8 8 [facility] T OFFICE 98315 ROSS, ROSS, [facility] 8 8 SAGE SAGE T VISIT 15 MINUTES OFFICE 22823 ADVANCED DUBAL, [facility] 8 8 PAIN GABRIEL Durán T VISIT MEDICIINE 25 PSC MINUTES OFFICE 91873 KEN ROGERS OUTPATIEN 8 8 MERLYN ZULETA T VISIT 25 MINUTES OFFICE 29851 AWILDA PLASCENCIA [facility] 8 8 MEDICAL JALEN Mueller T VISIT CLINIC 15 MINUTES
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
--- OUTSIDE RECORDS SUMMARY | 2016-11-21 13:58 | External Medical Summary Rpt ---
Author Author , Organization [employer] Address Unknown Phone Unavailable Care Team Providers Care Websphere Portal Developer Name Role Phone Quoc HOYT, Unavailable Unavailable Quoc HOYT MD, PSC, Unavailable Unavailable CANDICE BAR MD, PSC [facility] Unavailable Unavailable [facility], [facility], Unavailable Unavailable [facility] AFTAB SWIFT, Unavailable Unavailable AFTAB SWIFT [id number], Unavailable Unavailable [id number] GABRIEL VARGAS, Unavailable Unavailable GABRIEL VARGAS DUFF Unavailable Unavailable [facility] Unavailable Unavailable INC, [facility] CAITLIN REINA, Unavailable Unavailable CAITLIN REINA [facility] Unavailable Unavailable PHARMACY, [facility] MARCIAL HUDDLESTON, Unavailable Unavailable MARCIAL HUDDLE[place] NATHAN L, Unavailable Unavailable JALEN PLASCENCIA KEVIN, Unavailable Unavailable [facility] Unavailable Unavailable LAB, [facility], [facility] ROSS, SAGE, ROSS, Unavailable Unavailable SAGE [id number], Unavailable Unavailable [id number] MERLYN ROGERS, Unavailable Unavailable MERLYN ROGERS DON R, Unavailable Unavailable PRANAV GONZALEZ [facility], Unavailable Unavailable [facility] LUDA RAMOS, Unavailable Unavailable LUDA RAMOS JEFFREY, Unavailable Unavailable FADY LOMELI BRADLEY B, Unavailable Unavailable CARLOS LEI Purpose Continuity of Care Document - 08-16-2007 through 2016 Problems Code Diagnosis DOS Provider Status E785 HYPERLIPIDE 09-22-2016 [facility] UNSPECIFIED INC I10 ESSENTIAL 09-22-2016 [facility] HYPERTENSIO INC N Q86111 PAIN IN 09-21-2016 [facility] INC [id number] PAIN IN 09-21-2016 [facility] INC G4733 OBSTRUCTIVE 09-08-2016 [facility] APNEA ADULT INC PEDIATRIC R0602 SHORTNESS 07-29-2016 [facility] INC R42 DIZZINESS 07-29-2016 [facility] GIDDINESS INC Z720 TOBACCO USE 07-29-2016 [facility] INC Z8249 FAMILY HX 07-21-2016 [facility]MIC [facility] HRT DZ OTH INC DZ CIRC SYSTEM R18085 CHRONIC 07-19-2016 [facility] TENSION[facility]YP [facility] E HEADACHE ASSOC PSC NOT INTRACTABLE A281CNM STRAIN 07-19-2016 [facility] MUSCLE FASC L [facility] TENDON [facility] PSC NECK LEVL INIT ENC M5010 CERVICAL 04-05-2016 CANDICE BAR DISC D/O MD, PSC W/RADICULOP ATHY UNS CERV RGN M791 MYALGIA 04-05-2016 CANDICE BAR MD, PSC M542 CERVICALGIA 01-15-2016 [facility] INC R140 ABDOMINAL 11-26-2015 [facility] GASEOUS INC G249 DYSTONIA 08-07-2015 [facility] M069 RHEUMATOID 08-07-2015 [facility] UNSPECIFIED R51 HEADACHE 08-07-2015 [facility] Z721 08-07-2015 [facility] [id number] PAIN IN 07-16-2015 [facility] INC 7231 CERVICALGIA 01-30-2015 [facility] V7231 ROUTINE 11-24-2008 [facility] EXAMINATION 86530 PAIN IN 11-13-2008 [facility] ANKLE AND HOSPITAL FOOT 7235 TORTICOLLIS 11-13-2008 [facility] V571 OTHER 11-13-2008 [place] [facility] 7245 UNSPECIFIED 10-31-2008 [facility] [place] BACKACHE RADIOLOGY 7295 PAIN IN 10-31-2008 [facility] [place] SOFT RADIOLOGY TIS[place]ES OF [place] 81039 UNSPECIFIED 10-31-2008 [facility] S 62704 UNSPECIFIED 10-31-2008 [facility] [place] SITE OF RADIOLOGY ANKLE SPRAIN AND STRAIN V4382 BREAST 10-31-2008 [place] REPLACED BY [facility] OTHER [facility]OSPITAL MEANS V7612 OTHER 10-31-2008 [facility] [place] SCREENING RADIOLOGY MAMMOGRAM V8281 SPECIAL 10-31-2008 [facility] [place] SCREENING RADIOLOGY FOR OSTEOPOROSI S 84926 SPASMODIC 10-02-2008 [place] [facility] TORT[facility]LL[facility] 1129 CANDIDIASIS 08-11-2008 CARLOS OF DON R UNSPECIFIED SITE 4610 ACUTE 08-11-2008 CARLOS MAXILLARY DON R SINUSITIS 4619 ACUTE 08-08-2008 AYLA SINUSITIS, [facility] UNSPECIFIED [facility] 7840 HEADACHE 08-08-2008 [facility] 7862 COUGH 08-08-2008 [facility] 4660 ACUTE 07-30-2008 CARLOS BRONCHITIS DON R 0340 STREPTOCOCC 07-23-2008 CARLOS AL SORE DON R THROAT 4659 ACUTE URIS 07-14-2008 GONZALEZ, OF DON R UNSPECIFIED SITE 5959 UNSPECIFIED 04-11-2008 CARLOS, CYSTITIS [place] R 59487 UNSPECIFIED 04-11-2008 CARLOS, VAGINITIS DON R AND [...] PAIN CERVICAL MEDICIINE INTERVERTEB PSC RAL DISC 77161 STIFFNESS 10-29-2007 KEN OF JOINT MERLYN NEC OTHER SPECIFIED SITE 7239 UNSPEC 10-29-2007 KEN MUSCULOSKEL MERLYN D/O&SYMPTOM S REFERABLE NECK 92072 UNSPECIFIED 08-16-2007 [facility] ACUTE MEDICAL NONSUPPURAT CLINIC CHRISTAL OTITIS MEDIA 4871 INFLUENZA 08-16-2007 [facility] MANIFESTATI ONS [...] M LE #3 Y 91 B 4 NH 00 05 06 00 30 30 RI [...] M LE #3 Y 91 B 4 NH 00 11 05 05 30 30 RI [...] M LE #3 Y 91 B 4 NH 00 11 04 04 30 30 RI [...] M LE #3 Y 91 B 4 NH 00 11 03 03 30 30 RI [...] AR N M R #3 91 4 NH 00 02 02 00 24 6 RI [...] 09 09 D E 9 PH DO NH AR N OP M R #3 50 91 4 MC G SP RA Y ME 00 01 01 00 [address] Ac TH 60 -2 -3 .0 TE 11 EP ti YL 34 1- 0- 00 47 HE ve NH 59 20 20 AI NS ED 31 09 09 D NI 5 PH DO SO AR N LO M R NE #3 4 91 4 MG DO SE PK NH 00 11 01 02 30 30 RI [...] M LE #3 Y 91 B 4 NH 00 11 01 01 30 30 RI [...] M LE #3 Y 91 B 4 NH 00 11 12 00 30 30 RI [...] MG #3 91 TA 4 BL ET NH 00 10 11 01 30 30 RI [...] MG 91 B 4 TA BL ET NH 00 10 10 00 30 30 RI [...] [address] Ac NH 17 -0 -0 .0 TE 01 EP [...] RE ZA 11 08 08 D GI NH 0 PH NA IN AR E M [...] SA E- 73 07 08 D RO NH 0 PH J IL AR B OC M AI #3 NE 91 4 CR EA M CY 00 03 06 01 90 30 RI 32 RA Ac CL 37 -1 -0 .0 TE 12 AB ti OB 80 7- 5- 00 17 ve EN 75 20 20 AI RE ZA 10 08 08 D GI NH 1 PH NA IN AR E M [...] #3 % 91 RI 4 NS E NH 00 04 04 00 30 30 RI [...] ai ZA 10 08 08 D la NH 1 PH bl IN AR e E [...] 5 CY bl e #3 01 6 NH 00 11 04 00 30 30 RI [...] Procedure DOS Code Location Performer Comment ECG 33865 [facility] ROUTINE 7 [facility] ECG INC INC W/LEAST 12 LDS TRCG ONLY W/O I&R RADEX 87575 [facility] HAND 7 [facility] MINIMUM 3 INC INC VIEWS POLYSOM 61135 [facility] 6/>YRS 7 [facility] SLEEP 4/> INC INC ADDL VARGHESE ATTND MYOCARDIA 62757 [facility] L SPECT 7 [facility] MULTIPLE INC INC STUDIES ECHO 33745 [facility] TTHRC R-T 7 [facility] 2D INC INC W/WOM-MOD E COMPL SPEC&COLR D CV STRS 72179 [facility] TST 7 [facility] XERS&/OR INC INC RX CONT ECG TRCG ONLY INJECTION J2785 [facility] 7 [facility] REGADENOS INC INC ON 0.1 MG TECHNETIU A9502 [facility] M TC-99M 7 [facility] TETROFOSM INC INC IN DX PER STUDY DOSE ECG 61730 [facility] ROUTINE 7 [facility] ECG INC INC W/LEAST 12 LDS TRCG ONLY W/O I&R THERAPEUT 51246 PROFESSIO CROSSFIEL IC PX 1/> 7 [facility] EACH 15 PSC MIN EXERCISES THERAPEUT 96820 PROFESSIO CROSSFIEL IC PX 1/> 6 [facility] EACH 15 PSC MIN EXERCISES THERAPEUT 86256 PROFESSIO PROFESSIO IC PX 1/> 6 [facility] NAL REHAB AREAS ASSOC ASSOC EACH 15 PSC PSC MIN EXERCISES THERAPEUT 73914 PROFESSIO CROSSFIEL IC PX 1/> 6 [facility] EACH 15 PSC MIN EXERCISES THERAPEUT 02725 PROFESSIO PROFESSIO IC PX 1/> 6 [facility] NAL REHAB AREAS ASSOC ASSOC EACH 15 PSC PSC MIN EXERCISES THERAPEUT 96486 PROFESSIO CROSSFIEL IC PX 1/> 6 [facility] AREAS ASSOC EACH 15 PSC MIN EXERCISES THERAPEUT 31427 PROFESSIO CROSSFIEL IC PX 1/> 6 [facility] ARE[facility] ASSOC EACH 15 PSC MIN EXERCISES THERAPEUT 85611 PROFESSIO PROFESSIO IC PX 1/> 6 [facility] NAL REHAB AREAS ASSOC ASSOC EACH 15 PSC PSC MIN EXERCISES THERAPEUT 91214 PROFESSIO CROSSFIEL IC PX 1/> 6 [facility] EACH 15 PSC MIN EXERCISES MANUAL 51985 PROFESS[facility] CROSSFIEL THERAPY 6 NAL REHAB D TQS 1/> ASSOC REGIONS PSC EACH 15 MINUTES PHYSICAL 29402 PROFESSIO CROSSFIEL THERAPY 6 NAL REHAB D EVALUATIO ASSOC N PSC THERAPEUT 93722 [facility] IC 6 [facility] PROPHYLAC INC INC TIC/DX INJECTION SUBQ/[place] [address] [facility] INFUSION 6 [facility] THERAPY/P INC INC ROPHYLAXI S /DX 1ST TO 1 [place] [address] [facility] INFUSION 6 [facility] THERAPY INC INC PROPHYLAX IS/DX EA HOUR CULTURE 59519 [facility] BACTERIAL 6 [facility] INC [place] [address] [facility] HEAD/BRAI 6 [facility] N W/O INC INC CONTRAST MATERIAL COMPREHEN 52678 [facility] SIVE 6 [facility] [address] [facility] THYROID 6 [facility] STIMULATI INC INC NG HORMONE TSH BLOOD 59551 [facility] COUNT 6 [facility] COMPLETE INC INC AUTO&AUTO DIFRNTL WBC URNLS DIP 71705 [facility] 6 [facility] STICK/TAB INC INC LET REAGENT AUTO MICROSCOP Y ECG 14032 [facility] ROUTINE 6 [facility] ECG INC INC W/LEAST 12 LDS TRCG ONLY W/O I&R DRAINAGE [id number] [facility] SPINAL 6 Y Y CANAL [facility] PERCUTANE OUS APPROACH DX DUP-SCAN 39836 [facility] XTR VEINS 6 [facility]OS[facility] INC INC UNILATERA L/LIMITED STUDY 3D 05901 [facility] RENDERING 5 [facility] W/INTERP INC INC & POSTPROCE SS SUPERVISI ON MRI 85422 [facility] SPINAL 5 [facility] CANAL INC INC CERVICAL W/O CONTRAST MATRL APPL 78709 [place] MODALITY 9 [facility] 1/[facility] TRACTION MECHANICA L THERAPEUT 30792 [place] IC PX 1/> 9 [facility] EACH 15 MIN EXERCISES COMPUTER- 29316 [facility] BERNARD HOYT AIDED 9 RADIOLOGY J DETECTION SCREENING MAMMOGRAP HY DXA BONE 92398 [place] DENSITY 9 [facility] VERTEBRAL FRACTURE SCREENING 38855 [facility] VALADEZ RADIOLOGY J MAMMOGRAP HY BILATERAL DXA BONE 08340 [place] DENSITY 9 [facility] 1/> [facility] SITES AXIAL SKEL RADEX 62454 [facility] [place] 9 RADIOLOGY CAITLIN M COMPLETE MINIMUM 3 VIEWS RADEX 71146 [facility] BERNARD NUNO, FOOT 9 RADIOLOGY CAITLIN M COMPLETE MINIMUM 3 VIEWS E-STIM G0283 [place] [address]/[facility] 9 [facility] WND CARE PART TX PLAN APPL 04542 [facility] MODALITY [address] ULTRASOUN D EA 15 MIN PHYSICAL 66606 [facility] THERAPY 9 [facility] N NEEDLE 03606 BERNARD FERRARA, EMG GUID 9 MEDICAL MITCHEL W/CHEMODE SERV NERVATION FOUNDATIO CHEMODENE 73276 BERNARD FERRARA, RVATION 9 MEDICAL MITCHEL NECK SERV MUSCLE FOUNDATIO CUL BACT 86342 [facility] XCPT 9 [facility] URINE INC INC BLOOD/STO OL AEROBIC ISOL RADEX 86770 [facility] SINUSES 9 [facility] HOSP PARANASAL INC INC COMPL MINIMUM 3 VIEWS RADIOLOGI 85908 [facility] C EXAM 9 [facility]OS[facility] CHEST 2 INC INC VIEWS FRONTAL&L ATERAL IAADIADOO 34221 CARLOS GONZALEZ, 9 DON R DON R STREPTOCO CCUS GROUP A NEEDLE 98314 BERNARD FERRARA, EMG GUID 8 MEDICAL MITCHEL W/CHEMODE SERV NERVATION FOUNDATIO CHEMODENE 69241 BERNARD FERRARA, RVATION 8 MEDICAL MITCHEL NECK SERV MUSCLE FOUNDATIO CHEMODENE 01057 [facility] RVATION 8 Y [facility] MUSCLE NEEDLE 38851 BERNARD FERRARA, EMG GUID 8 MEDICAL MITCHEL W/CHEMODE SERV NERVATION FOUNDATIO CHIROPRAC 97111 MANISHAAR, MANISHAAR, TIC 8 [facility] MANIPULAT [place]RISTAL [place] SPINAL 1-2 REGIONS MRI 06006 [facility] BERNARD HOYT, SPINAL 8 RADIOLOGY J CANAL CERVICAL W/O CONTRAST MATRL NEEDLE 14963 BERNARD FERRARA, EMG GUID 8 MEDICAL MITCHEL W/CHEMODE SERV NERVATION FOUNDATIO CHEMODENE 15723 BERNARD FERRARA, RVATION 8 MEDICAL MITCHEL NECK SERV MUSCLE FOUNDATIO NJX 16376 ADVANCED DUBAL, DX/THER 8 PAIN GABRIEL B SBST MEDICIINE EPIDURAL/ PSC SUBRACH CERV/THOR ACIC FLUOR 79000 ADVANCED DUBAL, NEEDLE/CA 8 PAIN GABRIEL B TH MEDICIINE SPINE/PAR PSC ASPINAL DX/THER ADDON APPL 37703 KEN ROGERS, MODALITY 8 MERLYN ZULETA 1/> AREAS ELEC STIMJ EA 15 MIN CHIROPRAC 50789 KEN ROGERS, TIC 8 MERLYN ZULETA MANIPULAT [place] SPINAL 1-2 REGIONS CHIROPRAC 51131 KEN ROGERS, TIC 8 MERLYN ZULE[place] MANIPULAT [place] SPINAL 1-[place] [address] KEN ROGERS, 1/> AREAS 8 MERLYN ZULETA EACH 15 MINUTES MASSAGE CHIROPRAC 02908 KEN ROGERS TIC 8 MERLYN ZULETA MANIPULAT [place] SPINAL 1-[address] [place] [address] KEN ROGERS, 1/> AREAS 8 MERLYN ZULETA EACH 15 MINUTES MASSAGE CYTP C/V 83194 PATHOLOGY PATHOLOGY AUTO THIN 8 & & LYR CYTOLOGY CYTOLOGY PREPJ SCR LAB LAB MNL RESCR PHYS CHIROPRAC 02655 KEN ROGERS, TIC 8 MERLYN ZULETA MANIPULAT [place] SPINAL 1-[address] [place] [address] KEN ROGERS, 1/> AREAS 8 MERLYN ZULETA EACH [place] [address] KEN ROGERS, 1/> AREAS 8 MERLYN ZULETA EACH 15 MINUTES MASSAGE CHIROPRAC 37139 KEN ROGERS, TIC 8 MERLYN ZULE[place] MANIPULAT [place] SPINAL 1-2 REGIONS RADEX 53859 KEN ROGERS, SPINE 8 MERLYN ZULETA CERVICAL 2 OR 3 VIEWS Encounters Encounter Start End Date Code Location Performer Type Date [facility] SARA - 7 7 [facility] - 7 7 [facility] 7 7 [facility] SARA - 7 7 [facility] SARA - 7 7 [facility] OFFICE 86997 CANDICE LOPEZ [facility] 6 6 MD YOSVANY, T VISIT PSC 15 MINUTES EMERGENCY 21275 SARA 6 6 [facility] VISIT [facility]VER[facility]OSPITAL SARA - 6 6 [facility] 6 [facility] - 6 6 Y INPATIENT [facility]OSPITAL EMERGENCY 03014 SARA 6 6 [facility] VISIT MOD[facility]ATE [facility]VERITY HOSPITAL SARA - 6 6 [facility] - 5 5 [facility] 34424 FADI NIETO 9 9 [facility] CARLOS [facility] PAT[facility] [place] [facility] 9 9 [facility] [place] - 9 9 [facility] 9 9 [facility] OFFICE 25103 [facility] 9 9 LUDA El [facility] 30 MINUTES HOSPITAL UNIVERSIT - 9 9 [facility] T OFFICE 70310 CARLOS GONZALEZ, [facility] 9 9 DON R DON R T VISIT 15 MINUTES EMERGENCY 12343 S[facility] 9 9 [facility] VISIT MODERATE SEVERITY EMERGENCY 71952 AYLA LOMELI, 9 9 [facility] T VISIT ON HIGH/URGE NT SEVERITY HOSPITAL SARA - 9 9 [facility] T OFFICE 14996 [facility] DON R DON R T VISIT 15 MINUTES OFFICE 74795 [facility] 9 9 DON R DON R T VISIT 15 MINUTES OFFICE 62006 CAR[facility] 9 9 DON R DON R T VISIT 15 MINUTES OFFICE 99475 CAR[facility] 8 8 DON R DON R T VISIT 25 MINUTES HOSPITAL UNIVERSIT - 8 8 [facility] T OFFICE 96691 CAR[facility]OS [facility] 8 8 DON R DON R T VISIT 15 MINUTES [facility]OSPITAL [place] - 8 8 [facility] T OFFICE 83755 ROSS, ROSS, [facility] 8 8 SAGE SAGE T VISIT 15 MINUTES OFFICE 11767 ADVANCED DUBAL, [facility] 8 8 PAIN GABRIEL Durán T VISIT MEDICIINE 25 PSC MINUTES OFFICE 78449 KEN ROGERS [facility] 8 8 MERLYN ZULETA T VISIT 25 MINUTES OFFICE 09757 AWILDA PLASCENCIA [facility] 8 8 MEDICAL JALEN Mueller T VISIT CLINIC 15 MINUTES
--- OUTSIDE RECORDS SUMMARY | 2016-11-21 13:59 | External Medical Summary Rpt ---
Author Author MARILU Chowdhury, [employer] Organization [employer] Address Unknown Phone Unavailable
--- OUTSIDE RECORDS SUMMARY | 2016-11-21 13:59 | External Medical Summary Rpt ---
Demographics Preferred Language Georgian Marital Status Unknown Moravian Affiliation Unknown Race Unknown Ethnic Group Unknown Author Author , Organization [employer] Address Unknown Phone Unavailable Purpose Continuity of Care Document - through 2016 Immunization No patient found.
--- OUTSIDE RECORDS SUMMARY | 2016-11-21 13:59 | External Medical Summary Rpt ---
Demographics Preferred Language Maori Marital Status Unknown Yazdanism Affiliation Unknown Race Unknown Ethnic Group Unknown Author Author , Organization [employer] Address Unknown Phone Unavailable Purpose Continuity of Care Document - through 2016 Immunization No patient found.
[2016-11-21 14:18] VITALS: BP 142/74
== END 2016-11-21 14:19 | disposition home or self-care (01) ==
LOC: ER 13:20
DX: M54.2 Cervicalgia (principal); M43.6 Torticollis; Z72.0 Tobacco use

== ENCOUNTER 2017-03-21 13:40 | Day surgery (SDC) | payer MEDICARE, MEDICAID ==
[~2017-03-21] VITALS: Ht 152.4 cm; Wt 70.3 kg
[~2017-03-21 13:40] MED LIST changes: +HYDROMORPHONE1 MG/ML IT; +PRILOSEC20 M1 PO; +TIZANIDINE HCL 44 MG PO; +ZANAFLEX4 MG NG
[2017-03-21 14:13] VITALS: BP 138/81
[2017-03-21 15:04] VITALS: BP 138/81
[2017-03-21 15:05] VITALS: BP 155/92
--- NOTE | 2017-03-21 15:20 | Procedure Note ---
Procedure detail Date of procedure: 03/21/17 Anesthesiologist: Lefty Love Complications: None Pre-procedure diagnosis: Degenerative disc disease cervical spine cervical radicular symptoms. Myofascial pain syndrome. History of cervical torticollis. Post-procedure diagnosis: Same. Indications for procedure: Very pleasant 56-year-old white female that comes our procedure clinic today for intrathecal pain pump refill. Patient currently has hydromorphone 1 mg/mL at 0.2 mg per day. Today we will add bupivacaine 5 mg/mL to her pain pump. Procedure detail: Details of the procedure were expected to the patient. Patient was taken to the procedure room placed in a sitting position on the fluoroscopy table. The area over the intrathecal pain pump was cleansed using chlorhexidine as a cleansing solution. The pump was accessed with ease using a 22-gauge needle from the refill kit. 14 mL of fluid was withdrawn and discarded properly. Wasn't filled with 20 mL of hydromorphone 1 mg/mL and bupivacaine 5 mg/mL. The pump was interrogated and the rate was continued hydromorphone 0.2 mg per day. Bupivacaine 1 mg per day. Plan and disposition: Patient will be sent for physical therapy for the cervical spine. She'll return to see us in the pain clinic for further evaluation in 3 weeks. at 1616
[2017-03-21 15:24] VITALS: BP 127/78
== END 2017-03-21 15:25 ==
LOC: PM 13:40
DX: M50.10 Cervical disc disorder with radiculopathy, unspecified cervical region (principal); M79.1 Myalgia